=== PATIENT | male | born 1965 | race Caucasian/White ===

== ENCOUNTER 2022-02-20 09:42 | Emergency (ER) | payer SELFPAY ==
[~2022-02-20] VITALS: Ht 167.6 cm; Wt 80.0 kg
[2022-02-20 11:16] LABS: BASOPHILS % 0.9 % (0.0-2.0); EOSINOPHILS % 1.6 % (0.0-5.0); HEMATOCRIT. 41.6 % (42.0-52.0); LYMPHOCYTES % 41.3 % (20.0-50.0); MEAN CORPUSCULAR HEMOGLOBIN 30.9 pg (28.0-32.0); MEAN CORPUSCULAR VOLUME 91.7 fL (80.0-94.0); MEAN PLATELET VOLUME 8.8 fl (7.4-10.4); MONOCYTES % 7.3 % (2.0-8.0); NEUTROPHILS % 48.9 % (40.0-76.0); PLATELET 205 x1000/uL (130-400); RED BLOOD CELL COUNT 4.54 mill/uL (4.7-6.1); RED CELL DISTRIBUTION WIDTH 13.1 % (11.6-14.6)
[2022-02-20 11:27] LABS: CHLORIDE 111 mEq/L (98-107)
[2022-02-20 11:43] LABS: CLARITY URINE CLEAR (CLEAR); COLOR URINE YELLOW (YELLOW); KETONES URINE NEGATIVE (NEGATIVE); LEUKOCYTE ESTERASE URINE NEGATIVE (NEGATIVE); NITRITE URINE NEGATIVE (NEGATIVE); OCCULT BLOOD URINE 2+ (NEGATIVE); PROTEIN URINE NEGATIVE (NEGATIVE); SPECIFIC GRAVITY URINE 1.017 (1.005-1.030); UROBILINOGEN URINE 0.2 E.U./dL (0.2-1.0)
[2022-02-20] MEDS ORDERED: IBUP-2029 MT (12:03)
[2022-02-20] MEDS ORDERED: HYDR-4001 MT (12:04)
[2022-02-20] MEDS ORDERED: TAMS-11 MT (12:06)
[2022-02-20] MEDS ORDERED: KETOROLAC 30MG/ML VIAL IM ONE (12:15)
[2022-02-20 12:21] VITALS: BP 135/52
== END 2022-02-20 12:23 | disposition home or self-care (01) ==
LOC: ER 10:09
DX: N20.0 Calculus of kidney (principal); E78.00 Pure hypercholesterolemia, unspecified
CPT/HCPCS: 36415; 74176; 80053; 81003; 83690; 85025; 96372; 99284; J1885